=== PATIENT | male | born 1950 | race Caucasian/White ===

== ENCOUNTER 2016-10-31 11:13 | Day surgery (SDC) | payer OTHER ==
--- NOTE | 2016-10-26 09:34 | MH ---
cc: PABLO KNOWLES M.D. DATE OF ADMISSION: 10/31/2016 DATE OF : 1950 REASON FOR ADMISSION Cardiac catheterization. HISTORY OF PRESENT ILLNESS The patient is a 65-year-old white male with a history of multiple medical problems including coronary artery disease, chronic renal insufficiency, diabetes, who is now admitted for coronary and graft angiography. The patient fell earlier this year resulting in a sternal fracture, sternal instability, wire separation from the sternum. He saw Dr. Skip Barbosa in consultation. Dr. Barbosa did agree he needed surgery to repair his sternum, but recommended graft angiography to assess the location of his bypass grafts, particularly the graft to the right coronary and the left internal mammary artery to the LAD before operating on the sternum. The patient otherwise has denied any recent angina. Chronically he has moderate dyspnea with moderate levels of exertion. He denies syncope, dizziness, palpitations, pedal edema. PAST MEDICAL HISTORY 1. Chronic renal insufficiency, stage IV. 2. COPD. 3. Coronary artery disease, status post stenting of the LAD 2004, status post stent x 4 of the proximal to mid LAD 03/06/2013 in [place], status post bypass surgery in [place] 06/24/2013 with a left internal mammary artery to the LAD and three separate vein grafts to the obtuse marginal, ramus intermedius and right coronary artery. He did have a heart catheterization 05/13/2013 showing mild left main disease, 25-30% proximal LAD stenosis, widely patent mid LAD stents, mild left circumflex and ramus intermedius disease, totally occluded proximal right coronary artery with good bceb-ii-peuph collaterals. 4. Diabetes. 5. Esophagitis demonstrated on upper endoscopy 05/15/2013. 6. Gastritis demonstrated on upper endoscopy 05/15/2013. 7. Hyperlipidemia. 8. Hypertension. 9. Peripheral vascular disease, status post right common iliac stent 2009 with a known chronically occluded right superficial femoral artery. PAST SURGICAL HISTORY 1. Appendectomy. 2. Cholecystectomy. 3. Coronary artery bypass grafting. 4. Hernia surgery. 5. Lumbar back surgery. MEDICATIONS His cardiac medications: 1. Amlodipine 5 mg q. daily. 2. Aspirin 81 mg q. daily. 3. Atorvastatin 10 mg q.h.s. 4. Plavix 75 mg q. daily. 5. Fenofibrate 160 mg q. daily. 6. Furosemide 40 mg b.i.d. 7. Losartan 50 mg q. daily. 8. Metoprolol succinate 100 mg q. daily. ALLERGIES PENICILLIN. FAMILY HISTORY Noncontributory. SOCIAL HISTORY The patient smokes about half a pack of cigarettes per day. He denies alcohol abuse. REVIEW OF SYSTEMS As in the history of present illness, otherwise negative or noncontributory. PHYSICAL EXAMINATION VITAL SIGNS: On exam his blood pressure is 120/56 with a pulse of 80, respirations 15. GENERAL: In general he is a well-developed, well-nourished white male in no acute distress. HEENT/NECK: Jugular venous pressure is normal. Carotid pulses are 2+ bilaterally and without bruits. CHEST: Examination of the chest reveals clear lung macdonald. CARDIAC: On cardiac examination he has a regular rhythm and rate without S3, S4, or murmur. ABDOMEN: On abdominal examination he has a soft, obese, nontender abdomen. Bowel sounds are present. There is no definite hepatosplenomegaly. EXTREMITIES: Examination of extremities reveals no clubbing or cyanosis. There is trace pretibial edema bilaterally. IMPRESSION A 65-year-old white male with a history of multiple medical problems including coronary artery disease, diabetes, hypertension, hyperlipidemia, chronic renal insufficiency, COPD, peripheral vascular disease, now admitted for coronary and graft angiography. The patient earlier this year fractured his sternum resulting in instability of the sternum as well as separation of wires. He has seen the cardiothoracic surgeon who has recommended surgery on the sternum. However, he also recommends at least graft angiography to determine the location of the grafts to make sure none of them are coursing near the sternum. The patient does have severe renal insufficiency. He understands the risks of renal failure with graft angiography. We will try to minimize the dye load. We will also use a DyeVert device. PLAN Coronary and graft angiography on 10/31/2016. MD LUIS Shelton/MARINA /1:39 PM /9:34 AM VIV
[~2016-10-31] VITALS: Ht 177.8 cm; Wt 103.5 kg
[2016-10-31 12:26] VITALS: BP 135/76; PULSE 85; RESP 18; O2SAT 92
[2016-10-31 12:34] LABS: AUTOMATED NEUTROPHIL # 6.8 TH/MM3 (1.8-7.7); BASOPHIL # 0.1 TH/MM3 (0-0.2); BASOPHIL % 0.7 % (0.0-2.0); EOSINOPHIL # 0.1 TH/MM3 (0-0.4); EOSINOPHIL % 1.4 % (0.0-4.0); HEMATOCRIT 36.3 % (39.0-51.0); HEMO FLAGS DIFF FINAL; LYMPH % 8.6 % (9.0-44.0); LYMPHOCYTE # 0.7 TH/MM3 (1.0-4.8); MEAN CELL VOLUME 90.8 FL (80.0-100.0); MEAN CORPUSCULAR HEMOGLOBIN 31.8 PG (27.0-34.0); MEAN CORPUSCULAR HGB CONC 35.1 % (32.0-36.0); MONO % 7.1 % (0.0-8.0); NEUT % 82.2 % (16.0-70.0); PLATELET COUNT 170 TH/MM3 (150-450); RED BLOOD COUNT 3.99 MIL/MM3 (4.50-5.90); RED CELL DISTRIBUTION WIDTH 15.1 % (11.6-17.2); WHITE BLOOD COUNT 8.3 TH/MM3 (4.0-11.0)
[2016-10-31 12:42] LABS: APTT (PATIENT) 30.6 SEC (24.3-30.1); INTERNATIONAL NORMALIZED RATIO 0.9 RATIO; PROTHROMBIN TIME - PATIENT 10.1 SEC (9.8-11.6)
[2016-10-31 12:53] LABS: BICARBONATE 25.5 MEQ/L (21.0-32.0); POTASSIUM 4.2 MEQ/L (3.5-5.1)
[2016-10-31] MEDS ORDERED: ASPI81TA11 PO (13:02)
[2016-10-31] MEDS ORDERED: ALLO100T PO (13:02)
[2016-10-31] MEDS ORDERED: FINA5TAB2 PO (13:02)
[2016-10-31] MEDS ORDERED: AMLO5TAB2 PO (13:02)
[2016-10-31] MEDS ORDERED: BUTA1TAB30 PO (13:02)
[2016-10-31] MEDS ORDERED: CITA20TA4 PO (13:02)
[2016-10-31] MEDS ORDERED: CLOP75TA PO (13:02)
[2016-10-31] MEDS ORDERED: FENO160T PO (13:02)
[2016-10-31] MEDS ORDERED: ATOR10TA15 PO (13:02)
[2016-10-31] MEDS ORDERED: GLIM4TAB PO (13:03)
[2016-10-31] MEDS ORDERED: TRAZ100T6 PO (13:03)
[2016-10-31] MEDS ORDERED: LANTUS2P SQ (13:03)
[2016-10-31] MEDS ORDERED: INSU100V SQ (13:03)
[2016-10-31] MEDS ORDERED: MULTTAB67 PO (13:03)
[2016-10-31] MEDS ORDERED: LOSA50TA PO (13:03)
[2016-10-31] MEDS ORDERED: METO100T9 PO (13:03)
[2016-10-31] MEDS ORDERED: TEMA30CA PO (13:03)
[2016-10-31] MEDS ORDERED: METH750T PO (13:03)
[2016-10-31] MEDS ORDERED: NITR0.4S SL (13:03)
[2016-10-31] MEDS ORDERED: NOVOLOGMXP SQ (13:03)
[2016-10-31] MEDS ORDERED: HYDR-3366 PO (13:03)
[2016-10-31] MEDS ORDERED: FURO40TA PO (13:03)
[2016-10-31] MEDS ORDERED: NS 1000P @30 MLS/HR (KVO) IV SCH (13:15)
[2016-10-31] MEDS ORDERED: HEPARIN-NS/PF INJ 500 ML ONE (13:36)
[2016-10-31] MEDS ORDERED: MIDAZOLAM HCL 2 MG/2 ML VIAL ONE ×2 (13:39→13:57)
[2016-10-31] MEDS ORDERED: SODIUM CHLOR 0.9% 1000 ML INJ 1,000 ML IV ONE (14:31)
--- NOTE | 2016-10-31 14:35 | CATHPROC ---
[facility] HIS Report Study Information Study Number Admission Scheduled Start Study Start [id number] Oct 31 2016 11:13AM 10/31/2016 Oct 31 2016 1:24PM [place] Service Cardiac Catheterization Admit Source Facility Department Other [facility] Correctional Manager Physician and Clinical Staff Initial Zenon Fink Health Information Coder Sourav Kasper,LUISA Other cathlab, cathlab Recorder Martin Krueger RCIS(BS) Scrub Daljit JaraRT(R) Procedures Performed Procedure Location (Site) Vessel Name Coronary Angiograms LCA Left Coronary Coronary Angiograms RCA Right Coronary Coronary Angiograms LEE-LAD Left Coronary Coronary Angiograms SVG-OM 2 CIRC Coronary Angiograms SVG-RCA Right Coronary Coronary Angiograms SVG-RAMUS Left Coronary Wire insertion Fem Art (left) Femoral Art Equipment Time [employer] Farmworker Description Size Mfg Part Number Used/Scraped TRANSDUCER, TRUWAVE [id number] 13:25 HARDY MEJÍA * Used W/STOCKCOCK *[id number] *[id number] *[id number] *[id number] WIRE, HYDROSTEER 150CM [id number] 14:04 DAIG[employer] 150CM Used ANGLED GLIDE *[id number] 13:25 [employer] INDUSTRIES PACK, CCL CUSTOM * Used *[id number] 13:25 [employer] PACER PEN, SKIN DUAL W/ RULER * Used *[id number] 13:25 [employer] MEDICAL SHEATH, FR6.5 PRELUDE 11CM FR 6.5 038ACT Used *[id number] 13:25 [employer] WIRE, 3MMJ .035 180CM 180CM Used *[id number] 13:25 NAMIC MANIFOLD, 4 PORT * Used *[id number] 13:25 [employer] OMNIPAQUE, 350 MG, 150ML 150ML [id number] Used DYEVERT, CONTRAST HVOFF-RRS 13:32 [employer] NG Used MODULATION SYSTEM NG *[id number] 13:25 [employer] MEDICAL BLANKET,WARM AIR CCL * Used *[id number] Equipment Model, Serial, Lot Number and Expiration Data Description Model Number Serial Number Lot Number Expiration Date WIRE, HYDROSTEER 150CM [id number] 06-07-2019 ANGLED GLIDE History: Risk Factors Family History of Hypertension Dyslipidemia Previous MA Previous Heart Failure Premature CAD Yes Yes Yes Yes Yes Prior Valve Prior PCI Prior PCIDate Prior CABG Prior CABGDate Surgery No Yes 04/09/2004 Yes 06/07/2013 Cerebrovascular Peripheral Artery Chronic Lung On Dialysis Diabetes Diabetes Therapy Disease Disease Disease No No No Yes Yes Oral History: Stress Tests Stress or Imaging Studies Performed No History: Other Disease Selection Items CAD HTN History: MA/CV Data Previous Cath Date Previous CABG Date 04/09/2004 06/07/2013 History: Other Current Smoker Method Packs a Day Years Used Pack Years Yes Cigarettes 1 40 40 Labs Hgb (g/dl) Hct (%) WBC (l/cumm) Platelets (thousands) 11.60-17.00 35.00-51.00 4.00-11.00 150.00-450.00 12.7 36.3 8.3 170 Glucose (mg/dl) BUN (mg/dl) Creatinine (mg/dl) BUN:Creatinine (1:x) 74.00-106.00 7.00-18.00 0.50-1.30 10.00-20.00 102 52 3.1 16.8 Na (meq/l) K (meq/l) 136.00-145.00 3.50-5.10 140 4.2 INR (PTT:PT) 0.90-1.10 0.9 CPK-MB (ng/ML) 0.50-3.60 Not Drawn Medication Medication Total Dose (Bolus/Oral) Medication Total Dosage/Unit 1% XYLOCAINE 20 mL FENTANYL 75 mcg VERSED 3 mg Medications (Bolus/Oral) Medication Time Given Dosage/Unit Administered By Reason VERSED 10/31/2016 1:52:02 PM 2 mg Sourav Kasper Patient arrived on 2 mg VERSED given by Sourav Kasper, RN in Left Forearm via Peripheral IV. Ordered by Zenon Mae. FENTANYL 10/31/2016 1:56:00 PM 50 mcg Sourav Kasper 50 mcg FENTANYL given in lab by Sourav Kasper, RN in Left Forearm via Peripheral IV. 1% XYLOCAINE 10/31/2016 1:59:00 PM 20 mL Zenon Mae 20 mL 1% XYLOCAINE given in lab by Zenon Mae in Left Groin via Subcutaneous. VERSED 10/31/2016 2:00:06 PM 1 mg Sourav Kasper Patient arrived on 1 mg VERSED given by Sourav Kasper RN in Left Forearm via Peripheral IV. Ordered by Zenon Mae. FENTANYL 10/31/2016 2:00:09 PM 25 mcg Sourav Kasper 25 mcg FENTANYL given in lab by Sourav Kasper RN in Left Forearm via Peripheral IV. Medication (Drip) Medication Time Given Dosage/Unit Concentration/Unit Diluent (ml) Solution IV Solutions 10/31/2016 1:24:32 PM 0 mL (IV) 500 NaCl .9 Patient arrived on IV Solutions given by toni muñoz in Left Forearm via Peripheral IV. Pump/Dri p Flow = 20 ml/hr using NaCl .9. Ordered by Zenon Mae. Initial Case Assessment Cardiovascular HR Rhythm NIBP Chest Pain 74 sinus 149/83 0 Edema Present Skin color Skin None Normal Warm Dry Circulatory - Right Pulses Dorsalis Pedis Femoral 3 3 Scale (0,1,2,3,4,d) Circulatory - Left Pulses Dorsalis Pedis Femoral 3 3 Scale (0,1,2,3,4,d) Neurological State Oriented to time-place- Alert Moves all extremities person Respiration - General Respiration Rate SpO2 (%) (B/min) 18 97 Chronological Log Time Study Chronological Log 13:24:17 Patient arrived via Bed. 13:24:19 Patient Name, D.O.B, / Armband Verified By R.N. 13:24:19 Consent signed by the physician and the patient and verified by the Correctional Manager staff. 13:24:20 Pre-op and post- op instructions given; patient acknowledges understanding of instructions. 13:24:21 Verbal Stimulation=2 Physical Stimulation=2 Airway=2 Respiration=2 TOTAL=8. (0=absent, 1=li mited, 2=present) 13:24:22 Presedation assessment performed by Correctional Manager RN. 13:24:22 Immediate Presedation assesment performed by physician. 13:24:23 Patient has been NPO for More than 6Hrs. 13:24:23 Skin Breakdown- none per patient 13:24:29 Patient Warmer Placed on the Table. 13:24:30 Ayo Prominences Protected 13:24:32 A # 20 IV was noted in the Forearm (left). Grade = 0 Patient arrived on IV Solutions given by cathlab, cathlab in Left Forearm via Peripheral IV. Pu mp/Drip Flow = 20 ml/hr 13:24:32 using NaCl .9. Ordered by Zenon Mae. 13:24:33 History and physical on the chart or being dictated. Vitals capture started with the following parameters, Patient=Adult, Interval=5 min, Initial Pr yqoknm=455 mmHg, 13:28:21 Deflation Rate=5 mmHg 13:29:03 HR=73 bpm, MRVQ=354/83 mmhg, SpO2=98.0 %, Resp=11 B/min, Pain=0, Camila=10, Velazquez=2 Assessment: Initial Case, HR=74 BPM, Rhythm=sinus, SOOQ=833/83 mmhg, Chest Pain=0, Edema=None, Color=Normal, Skin = Warm, Dry Right Pulses: Theodore Ped=3, Femoral=3 13:31:52 Left Pulses: Theodore Ped=3, Femoral=3 Neurological: State=Alert, Ox3, BRYSON Respiration: Resp=18 B/min, SpO2=97 % 13:32:34 Reference ECG taken 13:33:32 Bilateral groins prepped with 2% chlorhexidine, and with a 3 min. waiting time. 13:34:04 HR=72 bpm, ZAUU=708/76 mmhg, SpO2=97.0 %, Resp=21 B/min, Pain=0, Camila=10, Velazquez=2 13:38:59 Bilateral groins prepped with 2% chlorhexidine, and with a 3 min. waiting time. 13:39:01 paged 13:39:05 HR=73 bpm, WVVN=801/78 mmhg, SpO2=97.0 %, Resp=17 B/min, Pain=0, Camila=10, Velazquez=2 13:44:06 HR=73 bpm, HILZ=923/76 mmhg, SpO2=96.0 %, Resp=16 B/min, Pain=0, Camila=10, Velazquez=2 13:45:02 MD responded 13:45:07 Pressure channel 1 zeroed. 13:49:05 HR=73 bpm, PHDJ=445/83 mmhg, SpO2=97.0 %, Resp=15 B/min, Pain=0, Camila=10, Velazquez=2 13:51:42 MD arrived. 13:52:02 Patient arrived on 2 mg VERSED given by Sourav Kasper RN in Left Forearm via Peripheral I V. Ordered by Zenon Mae. 13:54:06 HR=77 bpm, HEIT=915/79 mmhg, SpO2=96.0 %, Resp=16 B/min, Pain=0, Camila=10, Velazquez=2 13:55:07 Contrast Scanned 13:55:07 Immediate Presedation assesment performed by physician. 13:56:00 50 mcg FENTANYL given in lab by Sourav Kasper RN in Left Forearm via Peripheral IV. Time Out. Correct patient, correct procedure,correct physician, ,power injector loaded with con trast with surgical team 13:58:29 present. Time Out Concurred by , individual staff in procedure 13:58:41 Case Start 13:59:00 20 mL 1% XYLOCAINE given in lab by Zenon Mae in Left Groin via Subcutaneous. 13:59:05 HR=74 bpm, VBUE=962/80 mmhg, SpO2=94.0 %, Resp=16 B/min, Pain=0, Camila=10, Velazquez=2 14:00:06 Patient arrived on 1 mg VERSED given by Sourav Kasper RN in Left Forearm via Peripheral I V. Ordered by Zenon Mae. 14:00:09 25 mcg FENTANYL given in lab by Sourav Kasper RN in Left Forearm via Peripheral IV. 14:02:33 Access site was Left Femoral Artery. 14:03:38 A WIRE, HYDROSTEER 150CM ANGLED GLIDE 150CM was inserted via Fem Art (left). 14:03:46 A SHEATH, FR6.5 PRELUDE 11CM FR 6.5 was advanced into the Fem Art (left) using the Percutan eous technique. 14:04:10 HR=75 bpm, QVPQ=779/80 mmhg, SpO2=97.0 %, Resp=16 B/min, Pain=0, Camila=10, Velazquez=2 A 3DRC INFINITI CATHETER FR 6 was advanced over a wire. OMNIPAQUE, 350 MG, 150ML 150ML was used for 14:04:33 injections. 14:04:43 The RCA was injected and visualized at various angles. OMNIPAQUE, 350 MG, 150ML 150ML used . 14:05:10 The SVG-RAMUS was injected and visualized at various angles. OMNIPAQUE, 350 MG, 150ML 150ML used. 14:06:47 The SVG-OM 2 was injected and visualized at various angles. OMNIPAQUE, 350 MG, 150ML 150ML used. 14:08:09 A WIRE, 3MMJ .035 180CM 180CM was inserted via Fem Art (left). 14:09:07 HR=76 bpm, XVIX=954/80 mmhg, SpO2=99.0 %, Resp=16 B/min, Pain=0, Camila=10, Velazquez=2 14:10:11 The ELE-LAD was injected and visualized at various angles. OMNIPAQUE, 350 MG, 150ML 150ML used. Recorded Pressure: Ao, HR=83, Condition=Condition 1 14:11:48 (Aorta) Ao 152/64/98 14:11:57 Catheter was removed A MPA-2 INFINITI CATHETER FR 6 was advanced over a wire. OMNIPAQUE, 350 MG, 150ML 150ML was use d for 14:11:57 injections. 14:12:28 The SVG-RCA was injected and visualized at various angles. OMNIPAQUE, 350 MG, 150ML 150ML u sed. After removing the current catheter a JL 4.0 INFINITI CATHETER FR 6 was advanced over a WIRE, 3 MMJ .035 180CM 14:12:43 180CM. 14:14:11 HR=77 bpm, KLJQ=713/79 mmhg, SpO2=99.0 %, Resp=14 B/min, Pain=0, Camila=10, Velazquez=2 14:14:33 The LCA was injected and visualized at various angles. OMNIPAQUE, 350 MG, 150ML 150ML used . 14:15:24 Catheter was removed 14:15:28 An injection in the Fem Art (left) was made through the SHEATH, FR6.5 PRELUDE 11CM FR 6.5. 14:16:11 Case End 14:18:15 Sheath removed; pressure applied to access site. 14:18:21 No case complications noted. 14:18:23 Cine recording checked. 14:18:24 Bedside Report will be given. 14:18:26 Contrast Scanned 14:18:29 Verbal Stimulation=2 Physical Stimulation=2 Airway=2 Respiration=2 TOTAL=8. (0=absent, 1=li mited, 2=present) 14:18:55 Catheter(s) removed without difficulty 14:19:10 HR=76 bpm, MFCA=797/82 mmhg, SpO2=99.0 %, Resp=15 B/min, Pain=0, Camila=10, Velazquez=2 14:24:09 HR=76 bpm, OBAK=176/76 mmhg, SpO2=99.0 %, Resp=16 B/min, Pain=0, Camila=10, Velazquez=2 14:29:12 HR=76 bpm, VUPC=644/80 mmhg, SpO2=99.0 %, Resp=18 B/min, Pain=0, Camila=10, Velazquez=2 14:34:13 HR=80 bpm, PUDW=199/68 mmhg, SpO2=98.0 %, Resp=13 B/min, Pain=0, Camila=10, Velazquez=2 14:34:50 Vitals capture stopped. 14:34:51 Patient moved to [facility] End Study - Contrast Media Used In Study Contrast Total Opened (mL) Total Used (mL) Total Wasted (mL) Omnipaque 54 54 0 End Study - Maximum Contrast Load Max Contrast Load (mL) 166.9 End Study - Radiation Exposure Fluoro Time (minutes) 4.4 End Study - Patient Disposition Complications Transferred To Interventional Outcome No Correctional Manager Holding No attempt made
[2016-10-31] MEDS ORDERED: SODIUM CHLOR 0.9% 250 ML INJ 250 ML IV PRN (14:45)
[2016-10-31] MEDS ORDERED: ONDANSETRON HCL 4 MG/2 ML VIAL IV PRN (14:45)
--- NOTE | 2016-10-31 14:49 | MA ---
cc: PABLO KNOWLES M.D. DATE: 10/31/2016 PROCEDURE Limited coronary and graft angiography; of note the procedure was done mainly to locate the position of bypass grafts as the patient is to undergo extensive sternal repair in the near future. PROCEDURE NOTES The patient was brought to the cardiac catheterization laboratory in a fasting state after having signed informed consent. The left groin was prepped and draped as per policy and anesthetized with 1% lidocaine. Arterial access was obtained via the left femoral artery and a 6-Guatemalan sheath placed. Coronary arteriography was performed using 6-Guatemalan Doni left 4.0 and right progressive catheters. All other bypass grafts were engaged with the progressive right catheter except for the vein graft to the right coronary artery which was engaged with a multipurpose catheter. Limited views were obtained to minimize contrast load as the patient's creatinine is 3.14. A DyeVert device was also used. Total contrast used was 55 cc. HEMODYNAMIC DATA Aorta 152/64 with a mean of 98. CORONARY ARTERIOGRAPHY The left main appears to have minimal luminal irregularities. The left anterior descending appears to be totally occluded in its midportion within previously placed stents. The LAD gives rise to two small to medium sized diagonals which appear to have overall minimal diffuse disease. There is a totally occluded ramus intermedius in its proximal portion. The left circumflex has 95% stenosis proximally. There is likely a totally occluded obtuse marginal arising from the left circumflex. The right coronary artery is totally occluded near its origin. GRAFT ANGIOGRAPHY The vein graft to the ramus intermedius is widely patent. There are diffuse mild irregularities of this graft resulting in up to 15% stenosis. The vein graft to the obtuse marginal is widely patent. The left internal mammary artery to the LAD is widely patent. This graft does run relatively close to the sternum. The vein graft to the right coronary artery is widely patent. CONCLUSIONS 1. Severe three-vessel nez perce coronary artery disease. 2. Widely patent 4/4 bypass grafts including a left internal mammary artery to the LAD, vein graft to the ramus intermedius, vein graft to the obtuse marginal, vein graft to the right coronary artery. MD LUIS Shelton/MARINA /2:30 PM /2:44 PM VIV
[2016-10-31] MEDS ORDERED: IOHEXOL 350 MG/ML 100 ML BTL (for Cath Lab) OTHER ONE (16:31)
[2016-10-31] MEDS ORDERED: MORPHINE SULFATE 8 MG/ML INJ ONE (16:46)
--- NOTE | 2016-10-31 17:09 | EKG ---
Date Performed: 10/31/2016 Time Performed: 12:15:26 PTAGE: 65 years EKG: Sinus rhythm . Mild IVCD Abnormal ECG NO PREVIOUS TRACING DOCTOR: Tyrone Burnett Interpretating Date/Time 10/31/2016 17:07:47
[2016-10-31] MEDS ORDERED: MORPHINE SULFATE 8 MG/ML INJ IV PUSH PRN (17:15)
== END 2016-10-31 19:01 | disposition home or self-care (01) ==
LOC: HDOC 11:13 → HDIC 11:18 → HDOC 19:01
PROVIDERS: ATTEND Internal Medicine Cardiovascular Disease
DX: I25.10 Atherosclerotic heart disease of native coronary artery without angina pectoris (principal); I12.9 Hypertensive chronic kidney disease with stage 1 through stage 4 chronic kidney disease, or unspecified chronic kidney disease; E11.51 Type 2 diabetes mellitus with diabetic peripheral angiopathy without gangrene; N18.4 Chronic kidney disease, stage 4 (severe); E11.22 Type 2 diabetes mellitus with diabetic chronic kidney disease; E78.5 Hyperlipidemia, unspecified; K29.70 Gastritis, unspecified, without bleeding; J44.9 Chronic obstructive pulmonary disease, unspecified; F17.210 Nicotine dependence, cigarettes, uncomplicated; Z95.1 Presence of aortocoronary bypass graft; Z79.82 Long term (current) use of aspirin; Z01.810 Encounter for preprocedural cardiovascular examination; Z01.818 Encounter for other preprocedural examination
CPT/HCPCS: 80048; 85025; 85610; 85730; 93005; 93454; C1769; C1893; J1644; J2250; J2270; J3010; Q9967

== ENCOUNTER 2016-12-27 07:57 | Day surgery (SDC) | payer OTHER ==
[~2016-12-27] VITALS: Ht 177.8 cm; Wt 100.0 kg
[~2016-12-27 07:57] MED LIST: ALLO100T PO; AMLO5TAB2 PO; ASPI81TA11 PO; ATOR10TA15 PO; BUTA1TAB30 PO; CITA20TA4 PO; CLOP75TA PO; FENO160T PO; FINA5TAB2 PO; FURO40TA PO; GLIM4TAB PO; HYDR-3366 PO; INSU100V SQ; LANTUS2P SQ; LOSA50TA PO; METH750T PO; METO100T9 PO; MULTTAB67 PO; NITR0.4S SL; NOVOLOGMXP SQ; TEMA30CA PO; TRAZ100T6 PO
[2016-12-27 08:16] VITALS: BP 172/90; PULSE 74; RESP 20; TEMP 97.8; O2SAT 98
[2016-12-27] MEDS ORDERED: BUTA1CAP PO (08:24)
[2016-12-27] MEDS ORDERED: PRAS25TA (08:24)
[2016-12-27] MEDS ORDERED: [UNRECOGNIZED DRUG - OTHER] (08:24)
[2016-12-27] MEDS ORDERED: FLUT1INH7 INH (08:24)
[2016-12-27] MEDS ORDERED: ASPI81CH37 CHEW (08:24)
[2016-12-27] MEDS ORDERED: FERR325C PO (08:24)
[2016-12-27] MEDS ORDERED: VENTAER INH (08:24)
[2016-12-27] MEDS ORDERED: CHOL5000 PO (08:24)
[2016-12-27] MEDS ORDERED: OMEGA (08:24)
[2016-12-27 08:39] LABS: AUTOMATED NEUTROPHIL # 4.3 TH/MM3 (1.8-7.7); BASOPHIL % 0.8 % (0.0-2.0); EOSINOPHIL # 0.2 TH/MM3 (0-0.4); EOSINOPHIL % 3.4 % (0.0-4.0); HEMATOCRIT 40.4 % (39.0-51.0); HEMO FLAGS DIFF FINAL; LYMPH % 15.9 % (9.0-44.0); MEAN CELL VOLUME 93.4 FL (80.0-100.0); MEAN CORPUSCULAR HEMOGLOBIN 31.1 PG (27.0-34.0); MEAN CORPUSCULAR HGB CONC 33.3 % (32.0-36.0); MONO % 10.2 % (0.0-8.0); NEUT % 69.7 % (16.0-70.0); PLATELET COUNT 234 TH/MM3 (150-450); RED BLOOD COUNT 4.32 MIL/MM3 (4.50-5.90); RED CELL DISTRIBUTION WIDTH 14.7 % (11.6-17.2); WHITE BLOOD COUNT 6.1 TH/MM3 (4.0-11.0)
[2016-12-27 08:50] LABS: APTT (PATIENT) 29.4 SEC (24.3-30.1); INTERNATIONAL NORMALIZED RATIO 0.9 RATIO; PROTHROMBIN TIME - PATIENT 10.4 SEC (9.8-11.6)
[2016-12-27] MEDS ORDERED: SODIUM CHLOR 0.9% 1000 ML IV SCH (09:00)
[2016-12-27] MEDS ORDERED: LIDOCAINE HCL 1% 20 ML VIAL ONE (09:09)
[2016-12-27] MEDS ORDERED: MIDAZOLAM HCL 5 MG/5 ML VIAL ONE (09:23)
--- NOTE | 2016-12-27 09:57 | PD.RAD ---
Post CT Procedure Prog Note Pre Procedure Diagnosis: (1) Multiple myeloma Post Procedure Diagnosis: (1) Multiple myeloma Procedure Date: Dec 27, 2016 Supervising Radiologist: Jonathan Santos Estimated blood loss: minimal Anesthesia: Conscious Sedation Plan of Activity Patient to Unit: ROPU Patient Condition: Good See PACS Report for procedural detail/treatment Biopsy Imaging Guidance: CT Side: Left Biopsy Procedure: Bone Marrow Site: left iliac bone Specimen: Core Biopsy Plan to ROPU then discharge in 2 hours. Jonathan Santos MD Dec 27, 2016 09:57
[2016-12-27 10:00] VITALS: BP 146/73; PULSE 62; RESP 16; TEMP 97.7; O2SAT 97
[2016-12-27] MEDS ORDERED: oxyCODONE/ACETAMINOPHEN 5 MG/325 MG TAB PO PRN (10:00)
[2016-12-27 10:15] VITALS: BP 141/77; PULSE 70; RESP 20; O2SAT 97
[2016-12-27 10:44] LABS: BONE MARROW PROCESSING COMPLETE; IRON STAIN DONE; JENNER GIEMSA STAIN DONE
[2016-12-27 10:45] VITALS: BP 158/74; PULSE 74; RESP 20; O2SAT 98
[2016-12-27 11:15] VITALS: BP 142/69; PULSE 78; RESP 16; O2SAT 96
--- NOTE | 2016-12-27 11:25 | RADRPT ---
EXAM DATE/TIME: 12/27/2016 09:39 [place] COMPARISON: No previous studies available for comparison. INDICATIONS : Multiple myeloma. SEDATION TIME: 30 minutes BIOPSY SITE: Left MEDICATION(S): 1.) 5 mg midazolam (Versed) IV 2.) 200 mcg fentanyl (Sublimaze) IV DEVICE(S): 1.) 11 gauge Bone marrow biopsy needle MEDICAL HISTORY : Cardiovascular disease. Diabetes mellitus type 2. SURGICAL HISTORY : Cholecystectomy Coronary bypass ENCOUNTER: Initial ACUITY: 1 day PAIN SCORE: 0/10 LOCATION: Left A total of one core specimen(s) were obtained and sent to the laboratory for pathologic evaluation. PROCEDURE: 1. CT guided bone marrow biopsy. 2. Conscious sedation with continuous EKG and oximetry monitoring. 3. EKG and oximetry remained stable throughout the procedure. Prior to the procedure informed consent was obtained. Any appropriate prior imaging studies were rev iewed. Using automated exposure control and adjustment of the mA and/or kV according to patient size , radiation dose was kept as low as reasonably achievable to obtain optimal diagnostic quality images . DICOM format image data is available electronically for review and comparison. The site was prepped in a sterile fashion. Full sterile technique was used, including cap, mask, barber rile gloves and gown and a large sterile sheet. Hand hygiene and 2% chlorhexidine and/or betadine/al cohol prep was utilized per protocol for cutaneous antisepsis. The skin and subcutaneous tissues wer e infiltrated with local anesthetic solution. With CT guidance the previously identified target was localized. Biopsy was performed using the presc ribed needle as above. Following biopsy marrow aspiration was performed with repeat puncture. Adequa te hemostasis was obtained with compression at the puncture site. Conscious sedation was performed with the prescribed dosages and duration as above in the presence of an independent trained radiology nurse to assist in the monitoring of the patient. EKG and oximetry remained stable throughout the procedure. The patient tolerated the procedure well and there were no complications. The patient was sent to Radiology Outpatient Unit in stable condition. CONCLUSION: 1. Uncomplicated CT guided bone marrow aspirate. 2. Uncomplicated CT guided bone marrow biopsy. Jonathan Santos MD on December 27, 2016 at 10:43 Board Certified Radiologist. This report was verified electronically.
[2016-12-27 11:45] VITALS: BP 137/59; PULSE 69; RESP 18; O2SAT 96
== END 2016-12-27 12:00 | disposition home or self-care (01) ==
LOC: HRAD 07:57 → HRIP 08:03 → HRAD 12:00
PROVIDERS: ATTEND Internal Medicine
DX: C90.00 Multiple myeloma not having achieved remission (principal); E11.9 Type 2 diabetes mellitus without complications; Z79.4 Long term (current) use of insulin
CPT/HCPCS: 38221; 77012; 85025; 85060; 85097; 85610; 85730; 88184; 88185; 88237; 88264; 88280; 88305; 88311; 88313; 88341; 88342; 99152; 99153; C1830; G0364; J2250; J3010; 88377